=== PATIENT | male | born 2000 | race Caucasian/White ===

== ENCOUNTER 2023-07-16 14:19 | Emergency (ER) | payer OTHER ==
[~2023-07-16] VITALS: Ht 175.3 cm; Wt 81.8 kg
[2023-07-16 14:26] VITALS: TEMP 97.3
[2023-07-16] MEDS ORDERED: BACI500O8 TOP (14:39)
[2023-07-16] MEDS ORDERED: BACITRACIN OINTMENT 30GM TUBE TOP PRN (14:50)
[2023-07-16 15:00] VITALS: BP 109/63; O2SAT 98
[2023-07-16] MEDS: NEOSPORIN OINT 0.9 GM PKT TOP ONE (15:00)
== END 2023-07-16 15:34 | disposition home or self-care (01) ==
LOC: EDBD 14:19 → M ED 14:19
DX: R55 Syncope and collapse (principal); S00.81XA Abrasion of other part of head, initial encounter; W19.XXXA Unspecified fall, initial encounter; Z79.2 Long term (current) use of antibiotics; Y92.9 Unspecified place or not applicable; Y93.89 Activity, other specified; Y99.9 Unspecified external cause status